=== PATIENT | female | born 1955 | race Caucasian/White ===

== ENCOUNTER 2018-07-05 12:50 | Emergency (ER) | payer BC ==
[2018-07-05 12:59] VITALS: RESP 18; TEMP 98.2
--- NOTE | 2018-07-05 13:08 | ED ---
General Adult HPI - General Chief complaint: Extremity Injury, Upper Stated complaint: Right Shoulder Injury/Fall Time Seen by Provider: 07/05/18 13:02 Source: patient, RN notes reviewed Mode of arrival: ambulatory Limitations: no limitations - History of Present Illness Initial comments: Patient 62-year-old female presenting to the emergency room today with chief complaint of an injury to the right shoulder that occurred yesterday. She does admit that she was doing some gardening when she lost her balance falling down landing onto the right shoulder. Patient does admit that she's had increased pain and decreased range of motion with this today. Patient denies any other injury or complaint. Patient states pain worse with movement. Patient denies any recent fever, chills, shortness of breath, chest pain, back pain, abdominal pain, nausea or vomiting, numbness or tingling, headaches or visual changes, or any other complaints. - Related Data Home Medications Medication Instructions Recorded Confirmed Fluticasone/Salmeterol [Advair 1 inhalation PO QAM 09/21/14 09/26/14 250-50 Diskus] Montelukast Sodium [Singulair] 10 mg PO HS 09/21/14 09/26/14 Previous Rx's Medication Instructions Recorded HYDROcodone/APAP 5-325MG [Trimble 1 - 2 each PO Q6HR PRN #90 tab 09/28/14 5-325] Warfarin [Coumadin] 2.5 mg PO DAILY #1 tab 09/28/14 Levofloxacin [Levaquin] 500 mg PO DAILY #5 tab 09/29/14 Multivitamins, Thera [Multivitamin 1 each PO DAILY@1200 #1 tab 09/29/14 (formulary)] Allergies Allergy/AdvReac Type Severity Reaction Status Date / Time nickel Allergy Unknown Verified 09/23/14 09:48 Sulfa (Sulfonamide Allergy Rash/Hives Verified 09/21/14 10:49 Antibiotics) sulfamethoxazole Allergy Unknown Verified 09/21/14 10:49 [From Bactrim] trimethoprim [From Bactrim] Allergy Unknown Verified 09/21/14 10:49 tin cans Allergy cold sores Uncoded 09/21/14 10:49 from drinking from tin cans Review of Systems ROS Statement: Those systems with pertinent positive or pertinent negative responses have been documented in the HPI. ROS Other: All systems not noted in ROS Statement are negative. Past Medical History Past Medical History: Asthma, Skin Disorder Additional Past Medical History / Comment(s): migraines, arthritis, eczema History of Any Multi-Drug Resistant Organisms: None Reported Past Surgical History: Hysterectomy, Joint Replacement Additional Past Surgical History / Comment(s): D&C, hysterectomy with bowel reconstruction, TOTAL LEFT HIP REPLACEMENT Past Anesthesia/Blood Transfusion Reactions: No Reported Reaction Past Psychological History: Anxiety Smoking Status: Never smoker Past Alcohol Use History: Occasional Past Drug Use History: None Reported - Past Family History Mother Family Medical History: Cancer General Exam - General Exam Comments Initial Comments: General: The patient is awake and alert, in no distress, and does not appear acutely ill. Neck: The neck is supple, there is no tenderness or JVD. Musculoskeletal: Normal appearance of the right shoulder no obvious deformity. Shows limited range of motion with flexion and extension at the right shoulder. Full range of motion right elbow and hand. No tenderness to the cervical or thoracic spine. No tenderness down to the right elbow or right hand. Radial pulses plus sensations intact. Neurological: A&O x 3. CN II-XII intact, There are no obvious motor or sensory deficits. Coordination appears grossly intact. Speech is normal. Skin: Skin is warm and dry and no rashes or lesions are noted. Psychiatric: Normal mood and affect. Limitations: no limitations Course Vital Signs 07/05/18 12:54 Temperature 98.2 F Pulse Rate 89 Respiratory 18 Rate Blood Pressure 133/88 O2 Sat by Pulse 96 Oximetry Medical Decision Making - Medical Decision Making X-rays reviewed negative for any acute fracture dislocation. Results were discussed with the patient. Patient will be discharged home advised follow-up with orthopedics over the next 2 days. Advised to return here to the emergency room for any symptoms increase or worsen or for any other concerns. Disposition Clinical Impression: Shoulder injury Disposition: HOME SELF-CARE Condition: Good Instructions: Rotator Cuff Injury (ED) Additional Instructions: Please follow-up with orthopedics over the next 2-5 days. Please return here to the emergency room symptoms increase or worsen or for any other concerns. Is patient prescribed a controlled substance at d/c from ED?: No Referrals: Henri Florence DO [Primary Care Provider] - 1-2 days Time of Disposition: 13:56
--- NOTE | 2018-07-05 13:17 | XR ---
EXAMINATION TYPE: XR shoulder complete RT , 3 VIEWS DATE OF EXAM ORDERED: 07/05/2018 HISTORY: Pain. COMPARISON: None. FINDINGS: No fracture, dislocation or other acute osseous lesion is seen. IMPRESSION: NO ACUTE OSSEOUS LESION.
[2018-07-05 18:34] VITALS: BP 129/67; PULSE 69
== END 2018-07-05 14:08 | disposition home or self-care (01) ==
LOC: EC 12:50
DX: S49.91XA Unspecified injury of right shoulder and upper arm, initial encounter (principal); J45.909 Unspecified asthma, uncomplicated; Z96.642 Presence of left artificial hip joint; Z79.51 Long term (current) use of inhaled steroids; Z79.899 Other long term (current) drug therapy; Z91.048 Other nonmedicinal substance allergy status; Z88.2 Allergy status to sulfonamides; W19.XXXA Unspecified fall, initial encounter; Y93.H2 Activity, gardening and landscaping; Y92.009 Unspecified place in unspecified non-institutional (private) residence as the place of occurrence of the external cause
CPT/HCPCS: 99283

== ENCOUNTER → 2020-10-25 | Outpatient (CLI) | payer BC ==
--- NOTE | 2020-10-25 10:00 | XR ---
EXAMINATION TYPE: XR lumbosacral spine min 4V DATE OF EXAM: 10/25/2020 CLINICAL HISTORY: Chronic low back pain for 3 months. TECHNIQUE: Frontal, lateral, and oblique images of the lumbar spine are obtained. COMPARISON: Lumbar spine x-ray August 01, 2014 FINDINGS: There are 5 lumbar type vertebral bodies redemonstrated. Slightly more prominent levoconve x scoliosis centered at L2 level. Slightly more prominent reactive dextroconvex scoliosis centered ne ar the lumbosacral junction. Slight grade 1 retrolisthesis L2 on L3, L3 on L4, and L4 on L5 are all r edemonstrated. Vertebral body heights are maintained. [id number] multilevel disc space narrowin g with increased findings L1-L2 and L2-L3 level noted on current study versus prior, new anterior end plate sclerosis and mild to moderate spurring L1-L2 level on current study. Facet arthropathy lower l umbar levels redemonstrated. Severe disc space narrowing and vacuum disc phenomenon and left L4-L5 le david redemonstrated. Oblique images appear within normal limits. Partial visualization of metallic frank dware from left hip surgery on current study. IMPRESSION: As above.
== END | disposition home or self-care (01) ==
LOC: RADXRYALE 09:33
PROVIDERS: ATTEND Physician Assistant Medical
DX: M99.73 Connective tissue and disc stenosis of intervertebral foramina of lumbar region (principal); M43.16 Spondylolisthesis, lumbar region; M47.816 Spondylosis without myelopathy or radiculopathy, lumbar region; M41.86 Other forms of scoliosis, lumbar region
CPT/HCPCS: 72110

== ENCOUNTER → 2022-04-01 | Outpatient (CLI) | payer MEDICARE ==
--- NOTE | 2022-04-01 11:03 | XR ---
EXAMINATION TYPE: XR Hip Complete RT DATE OF EXAM: 04/01/2022 CLINICAL HISTORY: pain TECHNIQUE: Two views of the right femur are obtained. COMPARISON: None. FINDINGS: There is no acute fracture or dislocation seen of the femur. The hip and knee joints appear within normal limits. The overlying soft tissue appears unremarkable. IMPRESSION: There is no acute fracture or dislocation seen of the femur. ICD 10 NO FRACTURE, INITIAL EVALUATION
== END | disposition home or self-care (01) ==
LOC: RADXRYALE 10:01
PROVIDERS: ATTEND Physician Assistant Medical
DX: M25.551 Pain in right hip (principal)
CPT/HCPCS: 73502